=== PATIENT | male | born 1995 | race Caucasian/White ===

== ENCOUNTER 2019-01-02 07:02 | Emergency (ER) | payer OTHER ==
[~2019-01-02] VITALS: Ht 180 cm; Wt 120.0 kg
[~2019-01-02 07:02] MED LIST: ACET-789 PO; FAMO20TA5 PO; LEVO750T9 PO; OMEP40CA36 PO; RT-ALBUINH IH
[2019-01-02] MEDS ORDERED: LACTATED RINGERS 1,000 ML IV ONE ×2 (07:21→08:14)
[2019-01-02] MEDS ORDERED: PANTOPRAZOLE 40 MG (PROTONIX) VIAL IV ONE (07:30)
[2019-01-02] MEDS ORDERED: HYOSCYAMINE 0.125 MG (LEVSIN) TAB PO ONE (07:30)
[2019-01-02] MEDS ORDERED: ONDANSETRON 4 MG/2 ML (SDV) Z0FRAN IVP ONE (07:30)
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
[2019-01-02 07:56] LABS: BASOPHILS % (AUTO) 0 % (0-10); EOSINOPHILS # (AUTO) 0.1 10^3/uL (0.0-0.3); EOSINOPHILS % (AUTO) 1 % (0-10); HEMATOCRIT 45 % (40-54); HEMOGLOBIN 15.5 G/DL (13.3-17.7); LYMPHOCYTES % (AUTO) 9 % (12-44); MEAN CORPUSCULAR HEMOGLOBIN 29 PG (25-34); MEAN CORPUSCULAR HGB CONC 35 G/DL (32-36); MEAN CORPUSCULAR VOLUME 83 FL (80-99); MONOCYTES # (AUTO) 0.6 X 10^3 (0.0-1.0); MONOCYTES % (AUTO) 6 % (0-12); NEUTROPHILS # (AUTO) 8.8 X 10^3 (1.8-7.8); NEUTROPHILS % (AUTO) 84 % (42-75); PLATELET COUNT 287 10^3/uL (130-400); RED CELL DISTRIBUTION WIDTH 13.2 % (10.0-14.5); WHITE BLOOD COUNT 10.5 10^3/uL (4.3-11.0)
[2019-01-02] MEDS ORDERED: NS 100 ML (IVPB) BAG IV ONE (08:00)
[2019-01-02] MEDS ORDERED: IOHEXOL 350 MG/ML 100 ML (OMNIPAQUE 350) VIAL IV ONE (08:00)
[2019-01-02] MEDS ORDERED: HOLD METFORMIN - RECEIVED CONTRAST 20 ML VIAL IV SCH (08:00)
[2019-01-02 08:08] LABS: ALANINE AMINOTRANSFERASE 37 U/L (0-55); ALBUMIN 4.5 GM/DL (3.2-4.5); ALKALINE PHOSPHATASE 83 U/L (40-136); BUN/CREATININE RATIO 10; CALCIUM 9.6 MG/DL (8.5-10.1); CARBON DIOXIDE 22 MMOL/L (21-32); CHLORIDE 108 MMOL/L (98-107); CREATININE SERUM 0.86 MG/DL (0.60-1.30); GFR ESTIMATED > 60; GLUCOSE 113 MG/DL (70-105); LIPASE 31 U/L (8-78); POTASSIUM 3.8 MMOL/L (3.6-5.0); SODIUM 142 MMOL/L (135-145); TOTAL PROTEIN 7.7 GM/DL (6.4-8.2)
--- NOTE | 2019-01-02 08:28 | Diagnostic Imaging Report ---
PROCEDURE: CT abdomen and pelvis with contrast, rule out appendicitis. TECHNIQUE: Multiple contiguous axial images were obtained through the abdomen and pelvis after the administration of intravenous contrast. INDICATION: Evaluate for appendicitis. Nausea and vomiting. COMPARISON: None. FINDINGS: The heart is unremarkable. The included lung bases are clear. Decreased attenuation is noted in the liver. No focal hepatic lesions. The portal vein is patent. The gallbladder is unremarkable. The spleen, pancreas, adrenal glands, and kidneys have a normal appearance. There is no pathologically enlarged mesenteric or retroperitoneal adenopathy. Loops of small bowel are fluid-filled and nondistended. No evidence of bowel obstruction. The appendix is visualized in a normal appearance. There is no free fluid or free air. The osseous structures are age-appropriate. Ureters and bladder are grossly normal. There is no free air, loculated collection, or adenopathy in the pelvis. IMPRESSION: 1. Decreased attenuation in the liver, which can be seen with hepatic steatosis. Recommend correlation with LFTs. 2. Fluid-filled nondistended loops of small bowel, which may represent enteritis. No evidence of bowel obstruction. No free fluid or free air. Dictated by: Dictated on workstation # [id number]
--- NOTE | 2019-01-02 08:31 | Diagnostic Imaging Report ---
CLINICAL INDICATION: Patient with nausea, vomiting, and abdominal cramping since yesterday. Patient thinks he may have eaten something bad. EXAMS: X-ray of the chest PA view and x-ray of the abdomen supine and upright views. COMPARISON: None. FINDINGS: LUNGS/ PLEURA: The lungs are clear. There is no pneumothorax. There is no pleural effusion. MEDIASTINUM: Unremarkable. PULMONARY VASCULATURE: Unremarkable. HEART: Unremarkable. BONES/ EXTRATHORACIC SOFT TISSUE: Unremarkable. ABDOMEN AND PELVIS: There is no evidence of intestinal obstruction or dilated loops of bowel. There are multiple air/fluid levels seen throughout the colon with no evidence of colonic dilation. There is no evidence of abdominal free air. There are no focal calcifications overlying the expected regions/ pathways of both kidneys, ureters, and bladder regions. There is high density within the bilateral renal collecting systems and bladder related to IV contrast excretion. IMPRESSION: 1. There is no radiographic evidence of acute cardiopulmonary process. 2. A nonobstructive bowel gas pattern is seen. 3. There are nonspecific multiple air/fluid levels seen throughout the colon with no dilation of the colon. These findings may be related to colitis or diarrhea. Clinical correlation would better evaluate. Dictated by: Dictated on workstation # [id number]
[2019-01-02 08:51] LABS: BILIRUBIN,URINE NEGATIVE (NEGATIVE); CLARITY,URINE CLEAR; COLOR,URINE YELLOW; GLUCOSE, URINE (UA) NEGATIVE (NEGATIVE); KETONES,URINE NEGATIVE (NEGATIVE); LEUKOCYTE ESTERASE ,URINE NEGATIVE (NEGATIVE); NITRITE,URINE NEGATIVE (NEGATIVE); PH,URINE 8 (5-9); PROTEIN,URINE NEGATIVE (NEGATIVE); UROBILINOGEN,URINE 1 MG/DL (NORMAL)
[2019-01-02] MEDS ORDERED: LACT1CAP8 PO (08:51)
[2019-01-02] MEDS ORDERED: ONDA8TAB13 PO (08:51)
[2019-01-02] MEDS ORDERED: PANT40TA2 PO (08:51)
[2019-01-02] MEDS ORDERED: HYOS0.1283 SL (08:51)
[2019-01-02 09:03] LABS: BACTERIA,URINE NEGATIVE /HPF; SQUAMOUS EPITHELIAL CELL,UR RARE /HPF
[2019-01-02 09:15] VITALS: BP 132/84
[2019-01-02 09:16] LABS: AMYLASE 58 U/L (25-125)
== END 2019-01-02 09:15 | disposition home or self-care (01) ==
LOC: EDUNIT# 07:02 → ER 07:04
DX: K52.9 Noninfective gastroenteritis and colitis, unspecified (principal); I10 Essential (primary) hypertension; Z87.442 Personal history of urinary calculi
CPT/HCPCS: 36415; 74022; 74177; 80053; 81000; 82150; 83690; 85025; 96361; 96374; 96375

== ENCOUNTER 2019-02-15 03:03 | Emergency (ER) | payer OTHER ==
[~2019-02-15] VITALS: Ht 180 cm; Wt 126.0 kg
[~2019-02-15 03:03] MED LIST changes: +HYOS0.1283 SL; +LACT1CAP8 PO; +ONDA8TAB13 PO; +PANT40TA2 PO
[2019-02-15] MEDS ORDERED: IBUPROFEN 800 MG (MOTRIN) TAB PO ONE ×2 (03:15)
--- NOTE | 2019-02-15 03:20 | ED Cough/URI ---
General Stated Complaint: PT STS HIGH FEVER, 104.,PAIN IN BACK & KNEES Source: patient Exam Limitations: no limitations History of Present Illness Date Seen by Provider: Feb 15, 2019 Time Seen by Provider: 03:08 Initial Comments The patient has ER by private conveyance with chief complaint last couple weeks on-again lyu-yizgs-mwgo symptoms with scratchy throat, runny nose, cough. Last week had some phlegm but he said the symptoms pretty much dried up. He has been expressing fever for the past 2 or 3 days with a MAXIMUM TEMPERATURE of 104 self reported. He's been using Tylenol today thousand milligrams about 1900 and NyQuil one dose around 2200. He did get a flu vaccination. Physical history of high blood pressure and he has been working on losing weight control and does not take any medication. He chews tobacco about 1 can daily and denies significant alcohol or drug use. Allergies and Home Medications Allergies Coded Allergies: No Known Drug Allergies (Unverified , 01/18/13) Patient Home Medication List Home Medication List Reviewed: Yes Review of Systems Review of Systems Constitutional: chills, fever, malaise EENTM: No ear discharge, No ear pain Respiratory: cough; No phlegm, No short of breath, No wheezing Cardiovascular: No chest pain, No edema Gastrointestinal: No abdominal pain, No constipation, No diarrhea Genitourinary: No discharge, No dysuria Musculoskeletal: No back pain, No joint pain Past Hmfwhyd-Tonvac-Efatie Hx Patient Social History Alcohol Use: Denies Use Recreational Drug Use: No Type Used: Smokeless Tobacco Recent Foreign Travel: No Contact w/Someone Who Travel: No Recent Hopitalizations: No Immunizations Up To Date Tetanus Booster (TDap): More than 5yrs Past Medical History Surgeries: No Respiratory: No Cardiac: Yes Hypertension Neurological: No Reproductive Disorders: No Genitourinary: Yes Kidney Stones Gastrointestinal: No Musculoskeletal: No Endocrine: No HEENT: No Cancer: No Psychosocial: No Integumentary: No Blood Disorders: No Family Medical History No Pertinent Family Hx Physical Exam Vital Signs - First Documented 02/15/19 03:10 Temp 38.7 Pulse 130 Resp 18 B/P (MAP) 143/91 (108) Pulse Ox 99 O2 Delivery Room Air Capillary Refill : Height: 5'10" Weight: 210lbs. oz. 95.932155zw; 37.00 BMI Method:Stated General Appearance: WD/WN, mild distress Eyes: Bilateral Eye Normal Inspection, Bilateral Eye PERRL, Bilateral Eye EOMI HEENT: PERRL/EOMI, normal ENT inspection, pharyngeal erythema Neck: full range of motion, normal inspection Respiratory: lungs clear, normal breath sounds, no respiratory distress, no accessory muscle use Cardiovascular: normal peripheral pulses, regular rate, rhythm, tachycardia (120) Neurologic/Psychiatric: alert, normal mood/affect, oriented x 3 Skin: normal color, warm/dry Focused Exam Lactate Level 02/15/19 03:55: Lactic Acid Level 1.35 Lactic Acid Level Laboratory Tests Test 02/15/19 03:55 Lactic Acid Level 1.35 MMOL/L (0.50-2.00) Progress/Results/Core Measures Suspected Sepsis SIRS Temperature: Pulse: Respiratory Rate: Laboratory Tests 02/15/19 03:55: White Blood Count 5.9 Blood Pressure / Mean: 02/15/19 03:55: Lactic Acid Level 1.35 Laboratory Tests 02/15/19 03:55: Creatinine 0.99, INR Comment 1.0, Platelet Count 214, Total Bilirubin 0.7 Results/Orders Lab Results Laboratory Tests Test 02/15/19 03:53 02/15/19 03:55 Range/Units Urine Color YELLOW Urine Clarity CLEAR Urine pH 7 5-9 Urine Specific [place] 1.010 L 1.016-1.022 Urine Protein 1+ H NEGATIVE Urine Glucose (UA) NEGATIVE NEGATIVE Urine Ketones NEGATIVE NEGATIVE Urine Nitrite NEGATIVE NEGATIVE Urine Bilirubin NEGATIVE NEGATIVE Urine Urobilinogen 4 H NORMAL MG/DL Urine Leukocyte Esterase NEGATIVE NEGATIVE Urine RBC (Auto) NEGATIVE NEGATIVE Urine RBC NONE /HPF Urine WBC NONE /HPF Urine Squamous Epithelial Cells RARE /HPF Urine Crystals NONE /LPF Urine Bacteria TRACE /HPF Urine Casts NONE /LPF Urine Mucus SMALL H /LPF Urine Culture Indicated CULTURE PENDING White Blood Count 5.9 4.3-11.0 10^3/uL Red Blood Count 4.88 4.35-5.85 10^6/uL Hemoglobin 14.1 13.3-17.7 G/DL Hematocrit 41 40-54 % Mean Corpuscular Volume 84 80-99 FL Mean Corpuscular Hemoglobin 29 25-34 PG Mean Corpuscular Hemoglobin Concent 34 32-36 G/DL Red Cell Distribution Width 13.1 10.0-14.5 % Platelet Count 214 130-400 10^3/uL Mean Platelet Volume 10.9 H 7.4-10.4 FL Neutrophils (%) (Auto) 78 H 42-75 % Lymphocytes (%) (Auto) 10 L 12-44 % Monocytes (%) (Auto) 11 0-12 % Eosinophils (%) (Auto) 1 0-10 % Basophils (%) (Auto) 0 0-10 % Neutrophils # (Auto) 4.6 1.8-7.8 X 10^3 Lymphocytes # (Auto) 0.6 L 1.0-4.0 X 10^3 Monocytes # (Auto) 0.7 0.0-1.0 X 10^3 Eosinophils # (Auto) 0.0 0.0-0.3 10^3/uL Basophils # (Auto) 0.0 0.0-0.1 10^3/uL Prothrombin Time 13.1 12.2-14.7 SEC INR Comment 1.0 0.8-1.4 Activated Partial Thromboplast Time 32 24-35 SEC Sodium Level 139 135-145 MMOL/L Potassium Level 4.1 3.6-5.0 MMOL/L Chloride Level 104 98-107 MMOL/L Carbon Dioxide Level 24 21-32 MMOL/L Anion Gap 11 5-14 MMOL/L Blood Urea Nitrogen 8 7-18 MG/DL Creatinine 0.99 0.60-1.30 MG/DL Estimat Glomerular Filtration Rate > 60 BUN/Creatinine Ratio 8 Glucose Level 107 H 70-105 MG/DL Lactic Acid Level 1.35 0.50-2.00 MMOL/L Calcium Level 9.4 8.5-10.1 MG/DL Corrected Calcium 9.2 8.5-10.1 MG/DL Total Bilirubin 0.7 0.1-1.0 MG/DL Aspartate Amino Transf (AST/SGOT) 42 H 5-34 U/L Alanine Aminotransferase (ALT/SGPT) 47 0-55 U/L Total Protein 8.0 6.4-8.2 GM/DL Albumin 4.3 3.2-4.5 GM/DL Micro Results Microbiology 02/15/19 Influenza Types A,B Antigen (SALINA) - Final, Complete My Orders Orders - JENNIFER SHELTON Influenza A And B Antigens (02/15/19 03:15) Ibuprofen Tablet (Motrin Tablet) (02/15/19 03:15) Ibuprofen Tablet (Motrin Tablet) (02/15/19 03:15) Cbc With Automated Diff (02/15/19 03:48) Comprehensive Metabolic Panel (02/15/19 03:48) Blood Culture (02/15/19 03:48) Sputum Culture (02/15/19 03:48) Urinalysis (02/15/19 03:48) Urine Culture (02/15/19 03:48) Protime With Inr (02/15/19 03:48) Partial Thromboplastin Time (02/15/19 03:48) Ed Iv/Invasive Line Start (02/15/19 03:48) Ed Iv/Invasive Line Start (02/15/19 03:48) Vital Signs Adult Sepsis Patie Q15M (02/15/19 03:48) O2 (02/15/19 03:48) Remove Rings In Anticipation O (02/15/19 03:48) Lactic Acid Analyzer (02/15/19 03:48) Lactated Ringers (Lr 1000 Ml Iv Solution (02/15/19 03:48) Ceftriaxone For Iv Use (Rocephin For I (02/15/19 04:00) Chest Pa/Lat (2 View) (02/15/19 03:48) Azithromycin Tablet (Zithromax Tablet) (02/15/19 04:00) Medications Given in ED Current Medications Medications Dose Ordered Sig/Samra Route Start Time Stop Time Status Last Admin Dose Admin Azithromycin 500 mg ONCE ONCE PO 02/15/19 04:00 02/15/19 04:01 DC 02/15/19 04:22 500 MG Ceftriaxone Sodium 1000 mg/ Sterile Water 10 ml @ 200 mls/hr ONCE ONCE IV 02/15/19 04:00 02/15/19 04:02 DC 02/15/19 04:22 200 MLS/HR Ibuprofen 800 mg ONCE ONCE PO 02/15/19 03:15 02/15/19 03:17 DC 02/15/19 03:17 800 MG Lactated Ringer's 1,000 ml @ 0 mls/hr Q0M ONCE IV 02/15/19 03:48 02/15/19 03:52 DC 02/15/19 04:00 0 MLS/HR Vital Signs/I&O 02/15/19 02/15/19 03:10 03:17 Temp 38.7 38.7 Pulse 130 Resp 18 B/P (MAP) 143/91 (108) Pulse Ox 99 O2 Delivery Room Air Capillary Refill : Progress Note #1: Time: 03:19 Progress Note Motrin, oral fluids and influenza swab. Lung sounds are clear. Progress Note #2: Time: 03:51 Progress Note Influenza is negative then the patient still tachycardic 120 so we'll do a septic workup to include 2 L of lactated Ringer's which would be about 20 mL/kg and Rocephin/oral azithromycin. Two-view chest x-ray. Progress Note #3: Time: 04:48 Progress Note After IV fluids the patient's heart rate is down around 100. He is feeling much more comfortable. Plan to set him up for outpatient symptomatic support of bronchitis. Diagnostic Imaging Diagonstic Imaging: Xray Plain Films/CT/US/NM/MRI: chest (two-view) Comments No Acute cardiopulmonary findings 2 view chest x-ray. Reviewed: Reviewed by Me Departure Impression Primary Impression: Bronchitis Additional Impression: Influenza-like symptoms Disposition: HOME, SELF-CARE Condition: Stable Departure-Patient Inst. Decision time for Depature: 04:49 Referrals: [facility] (PCP) Primary Care Physician NO,LOCAL PHYSICIAN (Family) Primary Care Physician Patient Instructions: Acute Bronchitis, Adult (DC) Add. Discharge Instructions: Drink lots of fluids. Tylenol 1000 mg every 8 hours as needed for fever or body aches. Ibuprofen 800 mg every 8 hours as needed for fever or body aches. Tessalon Perles 1-2 capsules every 6 hours as needed for cough. Wash your hands frequently and use surface disinfectants around the house. Salt water gargles for sore throat, encourage lots of fluids to drink and eiji-gwk-xmbmehp cough and cold remedies as necessary. Scripts Benzonatate (Tessalon Perle) 100 Mg Capsule 100 MG PO Q6H PRN for COUGH, #20 CAP 0 Refills Prov: JENNIFER SHELTON 02/15/19 Work/School Note: Work Release Form Date Seen in the Emergency Department: Feb 15, 2019 Return to Work: Feb 17, 2019 Restrictions: Return-No Fever (24hrs) JENNIFER SHELTON Feb 15, 2019 03:20 POS
[2019-02-15] MEDS ORDERED: LACTATED RINGERS 1,000 ML IV ONE (03:48)
[2019-02-15 03:58] LABS: BILIRUBIN,URINE NEGATIVE (NEGATIVE); CLARITY,URINE CLEAR; COLOR,URINE YELLOW; GLUCOSE, URINE (UA) NEGATIVE (NEGATIVE); KETONES,URINE NEGATIVE (NEGATIVE); LEUKOCYTE ESTERASE ,URINE NEGATIVE (NEGATIVE); NITRITE,URINE NEGATIVE (NEGATIVE); PH,URINE 7 (5-9); PROTEIN,URINE 1+ (NEGATIVE)
[2019-02-15] MEDS ORDERED: cefTRIAXone FOR IV USE 1,000 MG in WATER (STERILE) FOR INJECTION 10 ML IV ONE (04:00)
[2019-02-15] MEDS ORDERED: AZITHROMYCIN 250 MG TAB (ZITHROMAX) PO ONE (04:00)
[2019-02-15 04:11] LABS: BASOPHILS % (AUTO) 0 % (0-10); EOSINOPHILS % (AUTO) 1 % (0-10); HEMATOCRIT 41 % (40-54); HEMOGLOBIN 14.1 G/DL (13.3-17.7); LYMPHOCYTES # (AUTO) 0.6 X 10^3 (1.0-4.0); LYMPHOCYTES % (AUTO) 10 % (12-44); MEAN CORPUSCULAR HEMOGLOBIN 29 PG (25-34); MEAN CORPUSCULAR HGB CONC 34 G/DL (32-36); MEAN CORPUSCULAR VOLUME 84 FL (80-99); MEAN PLATELET VOLUME 10.9 FL (7.4-10.4); MONOCYTES # (AUTO) 0.7 X 10^3 (0.0-1.0); MONOCYTES % (AUTO) 11 % (0-12); NEUTROPHILS # (AUTO) 4.6 X 10^3 (1.8-7.8); NEUTROPHILS % (AUTO) 78 % (42-75); PLATELET COUNT 214 10^3/uL (130-400); RED CELL DISTRIBUTION WIDTH 13.1 % (10.0-14.5); WHITE BLOOD COUNT 5.9 10^3/uL (4.3-11.0)
[2019-02-15 04:22] LABS: BACTERIA,URINE TRACE /HPF; SQUAMOUS EPITHELIAL CELL,UR RARE /HPF
[2019-02-15 04:22] LABS: PROTHROMBIN TIME PATIENT 13.1 SEC (12.2-14.7)
[2019-02-15 04:28] LABS: ALANINE AMINOTRANSFERASE 47 U/L (0-55); ALBUMIN 4.3 GM/DL (3.2-4.5); BILIRUBIN,TOTAL 0.7 MG/DL (0.1-1.0); BUN/CREATININE RATIO 8; CALCIUM 9.4 MG/DL (8.5-10.1); CARBON DIOXIDE 24 MMOL/L (21-32); CHLORIDE 104 MMOL/L (98-107); CREATININE SERUM 0.99 MG/DL (0.60-1.30); GFR ESTIMATED > 60; GLUCOSE 107 MG/DL (70-105); POTASSIUM 4.1 MMOL/L (3.6-5.0); SODIUM 139 MMOL/L (135-145)
[2019-02-15] MEDS ORDERED: BENZ-13 PO (04:50)
[2019-02-15 05:00] VITALS: BP 132/78
[2019-02-15 05:00] LABS: ALKALINE PHOSPHATASE 72 U/L (40-136)
--- NOTE | 2019-02-15 06:39 | Diagnostic Imaging Report ---
INDICATION: Fever COMPARISON: 01/02/2019. FINDINGS: Frontal and lateral views the chest demonstrate clear lungs bilaterally. The heart size is normal. There is no pneumothorax. Osseous structures are normal. IMPRESSION: No acute findings. Normal chest. Dictated by: Dictated on workstation # [id number]
== END 2019-02-15 05:06 | disposition home or self-care (01) ==
LOC: EDUNIT# 03:03 → ER 03:05
DX: J40 Bronchitis, not specified as acute or chronic (principal); R09.89 Other specified symptoms and signs involving the circulatory and respiratory systems; I10 Essential (primary) hypertension; F17.220 Nicotine dependence, chewing tobacco, uncomplicated; Z87.442 Personal history of urinary calculi
CPT/HCPCS: 36415; 71046; 80053; 81000; 83605; 85025; 85610; 85730; 87040; 87088; 87804; 96361; 96374

== ENCOUNTER → 2019-07-10 | Outpatient (CLI) | payer OTHER ==
[~2019-07-10] MED LIST changes: +BENZ-13 PO
--- NOTE | 2019-07-10 13:00 | Diagnostic Imaging Report ---
PROCEDURE: CT neck soft tissue without contrast. TECHNIQUE: Multiple contiguous axial images were obtained through the neck without the use of intravenous contrast. Auto Exposure Controls were utilized during the CT exam to meet ALARA standards for radiation dose reduction. INDICATION: Pressure in the lower anterior neck. COMPARISON: Prior CT neck with contrast from 09/21/2013. FINDINGS: The overall quality of the study is limited due to the absence of intravenous contrast. The posterior nasal pharynx and oropharynx are unremarkable. The parapharyngeal fat planes are preserved. The epiglottis and larynx are unremarkable. No thyroid mass is detected. The submandibular and parotid glands appear to be symmetric bilaterally. Small normal-sized lymph nodes in the posterior cervical space are noted bilaterally. There are some prominent jugulodigastric lymph nodes bilaterally, similar to the prior exam. No supraclavicular lymphadenopathy is detected. No fluid collections are identified. The retropharyngeal soft tissues are unremarkable. IMPRESSION: Overall similar appearance to the CT soft tissue neck when compared with the prior study from 09/21/2013 although post contrast imaging was not performed which does limit the study. There are some mildly prominent jugulodigastric nodes bilaterally, similar to the prior exam, which may be reactive. Dictated by: Dictated on workstation # [id number]
== END ==
LOC: RAD 12:06
PROVIDERS: ATTEND Physician Assistant
DX: Z12.9 Encounter for screening for malignant neoplasm, site unspecified (principal); R68.89 Other general symptoms and signs; Z72.0 Tobacco use
CPT/HCPCS: 70490

== ENCOUNTER 2021-09-21 00:54 | Emergency (ER) | payer BC, OTHER ==
[2021-09-21] MEDS ORDERED: RX-NAPROXEN (NAPROSYN) 250 MG TAB PPK#4 PO STA (02:06)
[2021-09-21] MEDS ORDERED: LIDO20SO23 MM (02:11)
[2021-09-21] MEDS ORDERED: NAPR500T8 PO (02:11)
[2021-09-21] MEDS ORDERED: AMOX1TAB12 PO (02:11)
--- NOTE | 2021-09-21 02:11 | ED EENT ---
History of Present Illness General Chief Complaint: Dental Problems/Pain Stated Complaint: DENTAL PAIN Allergies and Home Medications Allergies Coded Allergies: No Known Drug Allergies (Unverified , 01/18/13) Patient Home Medication List Benzonatate (Tessalon Perle) 100 Mg Capsule, 100 MG PO Q6H PRN for COUGH Prescribed by: JENNIFER SHELTON on 02/15/19 0450 Past Mpqlkgu-Xodugv-Gaimtr Hx Patient Social History Tobacco Use?: Yes Substance use?: No Alcohol Use?: No Immunizations Up To Date Tetanus Booster (TDap): More than 5yrs Seasonal Allergies Seasonal Allergies: No Past Medical History Surgeries: No Respiratory: No Cardiac: Yes Hypertension Neurological: No Reproductive Disorders: No Genitourinary: Yes Kidney Stones Gastrointestinal: No Musculoskeletal: No Endocrine: No HEENT: No Cancer: No Psychosocial: No Integumentary: No Blood Disorders: No Family Medical History No Pertinent Family Hx Physical Exam Height, Weight, BMI Height: 5'10" Weight: 210lbs. oz. 95.372768dg; 38.00 BMI Method:Stated Progress/Results/Core Measures Results/Orders My Orders Orders - BENJAMIN ESPARZA DO Amoxicillin/Clavulanate Tablet (Augmenti (09/21/21 08:00) Rx-Naproxen (Rx-Naprosyn) (09/21/21 02:06) Lidocaine 2% Viscous 15 Ml (Xylocaine Vi (09/21/21 02:15) Departure Impression Primary Impression: INFECTED PARTIALLY ERUPTED WISDOM TOOTH Disposition: 01 HOME, SELF-CARE Condition: Stable Departure-Patient Inst. Decision time for Depature: 02:09 Referrals: [facility] (PCP) Primary Care Physician NO,LOCAL PHYSICIAN (Family) Primary Care Physician Patient Instructions: Impacted Tooth (DC), Tooth Abscess (DC) Add. Discharge Instructions: FREQUENT S[employer] W[employer] GARGLES KEEP YOUR APPOINTMENT WITH THE DENTIST THIS WEEK All discharge instructions reviewed with patient and/or family. Voiced understanding. Scripts Lidocaine HCl (Lidocaine HCl Viscous) 2 % Solution 1-2 ML MM [id number], #120 ML Prov: CAPRI ESPARZAA Joselin MARROQUIN 09/21/21 Naproxen (Naproxen) 500 Mg Tablet.dr 500 MG PO BID, #20 TAB Prov: BENJAMIN ESPARZA DO 09/21/21 Amoxicillin/Potassium Clav (Amox Tr-K Clv 875-125 mg Tab) 875 Mg-125 Mg Tablet 1 EACH PO BID for 15 Days, #30 TAB Prov: BENJAMIN ESPARZA DO 09/21/21 BENJAMIN ESPARZA DO Sep 21, 2021 02:11
[2021-09-21] MEDS ORDERED: LIDOCAINE 2% VISCOUS 15 ML UDC MM ONE (02:15)
[2021-09-21] MEDS ORDERED: AUGMENTIN 875 MG TAB (AMOXICILLIN/CLAVULANATE) ONE (02:24)
[2021-09-21 02:32] VITALS: BP 168/112
[2021-09-21] MEDS ORDERED: AUGMENTIN 875 MG TAB (AMOXICILLIN/CLAVULANATE) PO SCH (08:00)
== END 2021-09-21 02:32 | disposition home or self-care (01) ==
LOC: EDUNIT# 00:54 → ER 00:56
DX: K04.7 Periapical abscess without sinus (principal)
CPT/HCPCS: 99283